=== PATIENT | male | born 1960 | race Caucasian/White ===

== ENCOUNTER 2016-09-10 22:11 | Inpatient (IN) | payer BC ==
[~2016-09-10 22:11] MED LIST: ADVICOR 1,001 BOTTL1; ASPIRIN EC81 M1 PO; KEFLEX500 M4 PO; LEVOTHYROXINE75 MCG; LEVOXYL112 MC1 PO; NITROSTAT0.4 MG SL; PERCOCET 5/3251 TAB PO; ROBAXIN750 MG/TAB PO
[2016-09-10 22:26] LABS: CARBON DIOXIDE-VENOUS 26 mmol/L (21-33); CREATININE 1.02 mg/dl (0.67-1.17); GLUCOSE 100 mg/dl (65-120); POTASSIUM 4.2 mmol/L (3.5-5.3); SODIUM 139 mmol/L (135-146); eGFR VALUE FOR BLACK >90 mL/Min
[2016-09-10 22:28] LABS: BASO % 0.1 % (0-2); EOS % 1.5 % (0-7); EOSINOPHIL ABSOLUTE COUNT 0.1 tho/cmm (0.0-0.7); HCT-HEMATOCRIT 42.3 % (36.0-53.5); HGB-HEMOGLOBIN 14.6 gm/dl (13.5-17.0); IMMATURE GRANULOCYTES ABSOLUTE 0.04 tho/cmm (0-0.03); IMMATURE GRANULOCYTES PERCENT 0.5 % (0-0.3); LYMPH ABSOLUTE COUNT 3.4 tho/cmm (0.8-4.5); MCH (MEAN CORPUSCULAR HGB) 31.6 pg (28.0-32.0); MCHC MEAN CORPUSCULAR HGB CONC 34.5 % (32.0-36.0); MCV (MEAN CELL VOLUME) 91.6 fl (82.0-96.0); MEAN PLATELET VOLUME 9.7 cmc (9.4-12.4); MONO % 9.3 % (0-12); MONOCYTE ABSOLUTE COUNT 0.7 tho/cmm (0.0-1.2); NEUTROPHIL ABSOLUTE COUNT 3.6 tho/cmm (1.6-8.0); NEUTROPHIL-AUTOMATED 3.6 tho/cmm (1.6-8.0); NEUTROPHILS % 45.6 % (40-80); PLATELET COUNT 203 tho/cmm (150-450); RED BLOOD COUNT 4.62 mil/cmm (4.40-5.70); RED CELL DISTRIBUTION WIDTH 12.5 % (12.4-16.4)
[2016-09-10 22:32] LABS: INR 0.9 INR (0.9-1.1); PROTHROMBIN TIME 10.9 SECONDS (9.0-13.6)
[2016-09-10 22:47] LABS: ALBUMIN 3.4 g/dl (3.5-5.0); ALKALINE PHOSPHATASE 52 U/L (33-138); ALT/SGPT 34 U/L (12-78); AST/SGOT 17 U/L (10-40); BILIRUBIN,TOTAL 0.4 mg/dl (0.0-1.5); BLOOD UREA NITROGEN 19 mg/dl (6-24); CALCIUM 8.4 mg/dl (8.5-10.5); CHLORIDE 107 mmol/l (96-110)
[2016-09-10 22:48] LABS: ANION GAP 12 mmol/L (0-20)
[2016-09-10 22:56] LABS: ESR-ERYTHROCYTE SED RATE 3 mm/hr (0-20)
[2016-09-11 09:51] LABS: URINE BILIRUBIN NEGATIVE (NEG); URINE BLOOD NEGATIVE (NEG); URINE GLUCOSE (UA) NEGATIVE (NEG); URINE KETONE NEGATIVE (NEG); URINE LEUKOCYTE ESTERASE NEGATIVE (NEG); URINE NITRITE NEGATIVE (NEG); URINE PROTEIN SMALL (NEG)
[2016-09-11 09:53] LABS: URINE APPEARANCE CLEAR; URINE COLOR YELLOW
[2016-09-11 10:06] LABS: URINE EPITHELIAL CELLS 0-1 /[HPF] (0-10); URINE MUCUS 2+
[2016-09-13 06:15] LABS: HGB-HEMOGLOBIN 15.1 gm/dl (13.5-17.0); PLATELET COUNT 196 tho/cmm (150-450)
[2016-09-13] MEDS ORDERED: LIPITOR20 M1 PO (15:44)
[2016-09-13] MEDS ORDERED: PLAVIX75 M1 PO (15:44)
== END 2016-09-13 16:23 | DRG 65 ==
LOC: EDMED 22:11 → EMR2 23:28 → 5EB 09-11 00:54
PROVIDERS: Emergency Medicine; Internal Medicine; ADMIT Hospitalist
PROC: B246ZZ4 Ultrasonography of Right and Left Heart, Transesophageal (ICD-10-PCS; principal; 2016-09-13)
DX: I63.9 Cerebral infarction, unspecified (principal); G81.94 Hemiplegia, unspecified affecting left nondominant side; R47.01 Aphasia; K22.2 Esophageal obstruction; Q21.1 Atrial septal defect; I10 Essential (primary) hypertension; E03.9 Hypothyroidism, unspecified; Z79.82 Long term (current) use of aspirin; M54.2 Cervicalgia; R33.9 Retention of urine, unspecified; H53.2 Diplopia; E78.5 Hyperlipidemia, unspecified; R20.0 Anesthesia of skin
CPT/HCPCS: A9577; C8925; C8929; J1650; J2250; J2270; J2405; J3010; J7030; J7050; Q9967